=== PATIENT | male | born 1940 | race Caucasian/White ===

== ENCOUNTER 2017-09-21 07:44 | Emergency (ER) | payer MEDICARE, OTHER ==
[~2017-09-21 07:44] MED LIST: IODOG TP; TYL3 PO
[2017-09-21] MEDS ORDERED: KETOROLAC TROMETHAMINE 30MG/ML ONE (08:35)
[2017-09-21] MEDS ORDERED: DIAZEPAM 5 MG TABLET ONE (08:36)
[2017-09-21] MEDS ORDERED: CYCLOBENZAPRINE HCL 10 MG TABLET ONE (08:36)
[2017-09-21 09:05] LABS: BASOPHILS % (AUTO) 0.8 % (0.0-5.0); EOSINOPHILS % (AUTO) 5.8 % (0.0-8.0); HEMATOCRIT 44.2 % (42-54); LYMPHOCYTES % (AUTO) 26.1 % (21.0-51.0); MEAN CORPUSCULAR HEMOGLOBIN 29.3 pg (27.0-33.0); MEAN CORPUSCULAR HGB CONC 34.4 g/dL (32.0-36.0); MEAN CORPUSCULAR VOLUME 85.1 fL (79-99); MONOCYTES % (AUTO) 9.1 % (3.0-13.0); NEUTROPHILS % (AUTO) 58.2 % (40.0-77.0); PLATELET COUNT (AUTO) 212 K/uL (130-400); RED BLOOD CELL COUNT(AUTO) 5.19 MIL/uL (4.50-6.20); RED CELL DISTRIBUTION WIDTH 16.3 % (11.0-15.5); WHITE BLOOD COUNT (AUTO) 9.1 K/uL (4.8-10.8)
[2017-09-21 09:10] LABS: INR 0.95 (0.85-1.15); PARTIAL THROMBOPLASTIN TIME 27.9 SEC (26.3-35.5)
[2017-09-21 09:44] LABS: CREATININE 0.9 mg/dL (0.5-1.5); POTASSIUM 3.6 mmol/L (3.5-5.1)
[2017-09-21 09:50] LABS: ALBUMIN 3.5 g/dL (3.5-5.0); BILIRUBIN,DIRECT 0.1 mg/dL (0.0-0.3); BILIRUBIN,TOTAL 0.5 mg/dL (0.2-1.0); TOTAL PROTEIN, SERUM 7.4 g/dL (6.0-8.3)
== END 2017-09-21 10:16 | disposition home or self-care (01) ==
LOC: EDH 07:44
DX: R10.9 Unspecified abdominal pain (principal); I10 Essential (primary) hypertension; Z90.49 Acquired absence of other specified parts of digestive tract; Z98.890 Other specified postprocedural states; Z87.891 Personal history of nicotine dependence
CPT/HCPCS: 36415; 80048; 80076; 82550; 83690; 84484; 85025; 85610; 85730; 93005; 96374; 99285; J1885